=== PATIENT | male | born 1970 | race African-American/Black ===

== ENCOUNTER → 2017-10-29 | Outpatient (CLI) | payer OTHER | END | disposition home or self-care (01) | LOC: HKI 13:29 | DX: M87.851 Other osteonecrosis, right femur (principal) | CPT/HCPCS: Z7500 ==

== ENCOUNTER 2018-01-01 05:56 | Inpatient (IN) | payer OTHER ==
[2018-01-01] MEDS: ACETAMINOPHEN 1000MG/100ML IV 100 ML IVPB (06:38)
[2018-01-01] MEDS: oxyCODONE (CR) 10 MG TAB [oxyCONTIN] PO (06:39)
[2018-01-01] MEDS: CELECOXIB 200 MG CAP PO (06:39)
[2018-01-01] MEDS: LACTATED RINGER'S 1,000 ML IV* (06:40)
[2018-01-01] MEDS: DEXAMETHASONE 4 MG/ML 1 ML INJ IV (06:40)
[2018-01-01] MEDS: LANSOPRAZOLE 30 MG CAP PO (06:40)
[2018-01-01] MEDS: ONDANSETRON 4 MG INJ IV ×3 (06:40→18:12)
[2018-01-01] MEDS ORDERED: GELATIN SIZE 100 SPONGE (06:52)
[2018-01-01] MEDS ORDERED: SUCCINYLCHOLINE CHLORIDE 100 MG/5 ML SYG IV (07:00)
[2018-01-01] MEDS ORDERED: CEFAZOLIN 1 GM INJ ×2 (07:00→07:28)
[2018-01-01] MEDS: CEFAZOLIN 2 GM/50 ML (PMX) 50 ML IVPB (07:00)
[2018-01-01] MEDS ORDERED: GLYCOPYRROLATE 0.4 MG INJ (07:28)
[2018-01-01] MEDS ORDERED: NEOSTIGMINE 3 MG/3 ML SYRINGE (07:28)
[2018-01-01] MEDS ORDERED: PROPOFOL 20 ML (07:28)
[2018-01-01] MEDS ORDERED: ROCURONIUM 50 MG INJ (07:28)
[2018-01-01] MEDS ORDERED: ONDANSETRON 4 MG INJ (07:30)
[2018-01-01] MEDS ORDERED: FENTAnyl 50 MCG/ML VIAL (07:30)
[2018-01-01] MEDS ORDERED: MIDAZOLAM 1 MG/ML 2 ML INJ (07:30)
[2018-01-01] MEDS ORDERED: morphine SULFATE/PF (10 MG/10 ML) INJ (07:31)
[2018-01-01] MEDS ORDERED: DEXAMETHASONE 4 MG/ML 1 ML INJ (07:31)
[2018-01-01] MEDS: TRANEXAMIC ACID 1,000 MG in DEXTROSE 5% 100 ML IVPB ×3 (07:32→11:30)
[2018-01-01] MEDS ORDERED: OXYCODONE/ACETAMINOPHEN (5/325) TAB PO ×2 (09:00)
[2018-01-01] MEDS ORDERED: FENTAnyl 50 MCG/ML VIAL IV ×3 (09:00)
[2018-01-01] MEDS ORDERED: EPHEDrine SULFATE 50 MG/5 ML SYG IV (09:00)
[2018-01-01] MEDS ORDERED: ALBUTEROL 0.083% (NEB) 2.5 MG/3 ML AMP HHN (09:00)
[2018-01-01] MEDS ORDERED: HYDROmorphONE (0.2 MG/ML) 10ML SYG IV ×3 (09:00)
[2018-01-01] MEDS ORDERED: MEPERIDINE 25 MG INJ IV (09:00)
[2018-01-01] MEDS ORDERED: TRIMETHOBENZAMIDE 100 MG/ML VIAL IM (09:00)
[2018-01-01] MEDS ORDERED: DIPHENHYDRAMINE 50 MG INJ IV (09:00)
[2018-01-01] MEDS ORDERED: MIDAZOLAM 1 MG/ML 2 ML INJ IV (09:00)
[2018-01-01] MEDS ORDERED: LABETALOL HCL 20MG INJ IV (09:00)
[2018-01-01] MEDS ORDERED: NALOXONE (0.4 MG/ML) INJ IV ×2 (09:00→12:30)
[2018-01-01] MEDS ORDERED: IPRATROPIUM (NEB) 0.5 MG/2.5 ML AMP HHN (09:00)
[2018-01-01] MEDS ORDERED: ONDANSETRON 4 MG INJ IV (09:00)
[2018-01-01] MEDS ORDERED: hydrALAzine 20 MG INJ IV (09:00)
[2018-01-01] MEDS: POLYMYXIN B 500000 UNIT INJ (09:17)
[2018-01-01] MEDS: BACITRACIN 50000 UNITS INJ (09:17)
[2018-01-01] MEDS: HIP PAIN COCKTAIL (CEFUROXIME) INJ (09:18)
[2018-01-01] MEDS ORDERED: SUGAMMADEX SODIUM 200 MG/2 ML VIAL IV (11:23)
[2018-01-01] MEDS: SOD CHLORIDE 0.9% 1,000 ML IV (12:06)
[2018-01-01] MEDS ORDERED: NACL 0.9% 3 ML SYG IV (12:30)
[2018-01-01] MEDS ORDERED: BISACODYL 10 MG SUPP PR (12:30)
[2018-01-01] MEDS ORDERED: BETHANECHOL 25 MG TAB PO (12:30)
[2018-01-01] MEDS ORDERED: traMADol 50 MG TAB PO (12:30)
[2018-01-01] MEDS ORDERED: SENNA/DOCUSATE NA (8.6MG/50MG) TAB PO (12:30)
[2018-01-01] MEDS ORDERED: DIPHENHYDRAMINE 50 MG INJ IM (12:30)
[2018-01-01] MEDS ORDERED: MAGNESIUM HYDROXIDE 30ML CUP PO (12:30)
[2018-01-01] MEDS ORDERED: NA PHOSPHATE/BIPHOS 133 ML ENEMA PR (12:30)
[2018-01-01] MEDS ORDERED: oxyCODONE 5 MG TAB PO (12:30)
[2018-01-01] MEDS: DOCUSATE SODIUM 100 MG CAP PO (12:56)
[2018-01-01] MEDS: ASPIRIN (EC) 325 MG TAB PO ×2 (12:58→20:18)
[2018-01-01] MEDS: CEFAZOLIN 1 GM/50 ML (PMX) 50 ML IVPB ×2 (12:59→20:17)
[2018-01-01] MEDS: GABAPENTIN 100 MG CAP PO (20:17)
[2018-01-02] MEDS: SOD CHLORIDE 0.9% 1,000 ML IV ×2 (00:36→13:06)
[2018-01-02] MEDS: ONDANSETRON 4 MG INJ IV ×2 (00:45→06:30)
[2018-01-02] MEDS: CEFAZOLIN 1 GM/50 ML (PMX) 50 ML IVPB (05:15)
[2018-01-02] MEDS: PANTOPRAZOLE (EC) 40 MG TAB PO (05:15)
[2018-01-02 05:22] LABS: ADD MAN DIFF? NO
[2018-01-02 05:27] LABS: WHITE BLOOD COUNT 8.3 10^3/ul (4.8-10.8)
[2018-01-02 05:27] LABS: BASOPHILS % 0.1 % (0.0-2.0); HEMATOCRIT 33.8 % (42.0-52.0); HEMOGLOBIN 11.7 g/dl (14.0-18.0); LYMPHOCYTES # 0.7 10^3/ul (0.8-2.9); LYMPHOCYTES % 8.5 % (15.0-51.0); MEAN CORPUSCULAR HEMOGLOBIN 31.9 pg (29.0-33.0); MEAN CORPUSCULAR HGB CONC 34.6 g/dl (32.0-37.0); MEAN CORPUSCULAR VOLUME 92.1 fl (82.0-101.0); MEAN PLATELET VOLUME 9.2 fl (7.4-10.4); MONOCYTE # 0.7 10^3/ul (0.3-0.9); MONOCYTES % 8.5 % (0.0-11.0); NEUTROPHIL # 6.8 10^3/ul (1.6-7.5); NEUTROPHILS % 82.4 % (39.0-77.0); PLATELET COUNT 202 10^3/UL (140-415); RED BLOOD COUNT 3.67 10^6/ul (4.70-6.10)
[2018-01-02 05:48] LABS: ANION GAP 14 (8-16); BLOOD UREA NITROGEN 18 mg/dl (7-20); CALCIUM 8.3 mg/dl (8.4-10.2); CARBON DIOXIDE 28 mmol/L (21-31); CHLORIDE 101 mmol/L (97-110); GLUCOSE 100 mg/dl (70-220); POTASSIUM 3.9 mmol/L (3.5-5.1); SODIUM 139 mmol/L (135-144)
[2018-01-02] MEDS: LISINOPRIL 10 MG TAB PO (09:11)
[2018-01-02] MEDS: FERROUS FUMARATE (SR) TAB PO ×2 (09:11→20:40)
[2018-01-02] MEDS: DOCUSATE SODIUM 100 MG CAP PO ×2 (09:12→20:40)
[2018-01-02] MEDS: CELECOXIB 200 MG CAP PO ×2 (09:12→20:40)
[2018-01-02] MEDS: ASPIRIN (EC) 325 MG TAB PO ×2 (09:12→20:40)
[2018-01-02] MEDS: GABAPENTIN 100 MG CAP PO ×2 (09:12→20:40)
[2018-01-02] MEDS: AMLODIPINE 10 MG TAB PO (09:12)
[2018-01-02] MEDS: oxyCODONE 5 MG TAB PO (12:58)
[2018-01-02] MEDS: ZOLPIDEM 5 MG TAB PO (20:40)
[2018-01-03] MEDS: SOD CHLORIDE 0.9% 1,000 ML IV (01:36)
[2018-01-03] MEDS: oxyCODONE 5 MG TAB PO ×2 (03:19→08:06)
[2018-01-03] MEDS: PANTOPRAZOLE (EC) 40 MG TAB PO (05:16)
[2018-01-03 05:34] LABS: ADD MAN DIFF? NO
[2018-01-03 05:38] LABS: BASOPHILS % 0.2 % (0.0-2.0); HEMATOCRIT 33.1 % (42.0-52.0); HEMOGLOBIN 11.4 g/dl (14.0-18.0); LYMPHOCYTES # 1.2 10^3/ul (0.8-2.9); LYMPHOCYTES % 18.2 % (15.0-51.0); MEAN CORPUSCULAR HEMOGLOBIN 31.5 pg (29.0-33.0); MEAN CORPUSCULAR HGB CONC 34.4 g/dl (32.0-37.0); MEAN CORPUSCULAR VOLUME 91.4 fl (82.0-101.0); MEAN PLATELET VOLUME 9.2 fl (7.4-10.4); MONOCYTE # 0.6 10^3/ul (0.3-0.9); MONOCYTES % 9.6 % (0.0-11.0); NEUTROPHIL # 4.7 10^3/ul (1.6-7.5); NEUTROPHILS % 71.4 % (39.0-77.0); PLATELET COUNT 176 10^3/UL (140-415); RED BLOOD COUNT 3.62 10^6/ul (4.70-6.10); RED CELL DISTRIBUTION WIDTH 12.8 % (11.5-14.5)
[2018-01-03 05:38] LABS: WHITE BLOOD COUNT 6.5 10^3/ul (4.8-10.8)
[2018-01-03 05:54] LABS: ANION GAP 12 (8-16); BLOOD UREA NITROGEN 14 mg/dl (7-20); CALCIUM 8.3 mg/dl (8.4-10.2); CARBON DIOXIDE 31 mmol/L (21-31); CHLORIDE 100 mmol/L (97-110); CREATININE 0.93 mg/dl (0.61-1.24); GLUCOSE 101 mg/dl (70-220); POTASSIUM 3.6 mmol/L (3.5-5.1); SODIUM 139 mmol/L (135-144)
[2018-01-03] MEDS: CELECOXIB 200 MG CAP PO (08:51)
[2018-01-03] MEDS: GABAPENTIN 100 MG CAP PO (08:51)
[2018-01-03] MEDS: LISINOPRIL 10 MG TAB PO (08:51)
[2018-01-03] MEDS: AMLODIPINE 10 MG TAB PO (08:51)
[2018-01-03] MEDS: FERROUS FUMARATE (SR) TAB PO (08:51)
[2018-01-03] MEDS: ASPIRIN (EC) 325 MG TAB PO (08:51)
[2018-01-03] MEDS: DOCUSATE SODIUM 100 MG CAP PO (08:51)
== END 2018-01-03 12:10 | disposition home health service (06) | DRG 470 ==
LOC: REC 05:56 → MS1 13:21
PROVIDERS: Orthopaedic Surgery Adult Reconstructive Orthopaedic Surgery
PROC: 0SR904A Replacement of Right Hip Joint with Ceramic on Polyethylene Synthetic Substitute, Uncemented, Open Approach (ICD-10-PCS; principal; 2018-01-01 07:30)
DX: M16.11 Unilateral primary osteoarthritis, right hip (principal); M87.9 Osteonecrosis, unspecified; I10 Essential (primary) hypertension; E66.9 Obesity, unspecified; Z68.37 Body mass index [BMI] 37.0-37.9, adult; F17.200 Nicotine dependence, unspecified, uncomplicated
CPT/HCPCS: 72170; 73500; 73530; 80048; 82962; 85025; 86850; 86900; 86901; 86920; 88304; 88311; 97116; 97161; 97530

== ENCOUNTER → 2018-01-21 | Outpatient (CLI) | payer OTHER | END | disposition home or self-care (01) | LOC: HKI 13:31 | DX: Z47.1 Aftercare following joint replacement surgery (principal); Z96.641 Presence of right artificial hip joint | CPT/HCPCS: 73502 ==